=== PATIENT | female | born 1960 | race Caucasian/White ===

== ENCOUNTER 2023-09-11 14:06 | Outpatient (CLI) | payer OTHER, SELFPAY ==
--- NOTE | 2023-09-11 14:40 | CRLHL7_ITS ---
For Patients: As a result of the Century Cures Act, medical imaging exams and procedure reports are released immediately into your electronic medical record. You may view this report before your referring provider. If you have questions, please contact your health care provider. BILATERAL SCREENING MAMMOGRAM WITH COMPUTER-AIDED DETECTION TECHNIQUE: CC and MLO views were obtained. These mammographic images have been obtained using full-field digital technique. These mammographic images were interpreted with the benefit of computer-aided detection. COMPARISON FILM: No prior available. FINDINGS: There are scattered areas of fibroglandular density IMPRESSION: There is no radiographic evidence for malignancy. ASSESSMENT: BI-RADS Category 1: Negative RECOMMENDATION: Routine screening mammogram in 1 year. A lay language report of this examination will be provided to the patient. Cirilo Truong M.D. Diagnostic Radiologist [email or web address] TARUN/Dictated by: Cirilo Truong MD @ 09/25/2023 11:47:00 AM (Electronically Signed)
== END 2023-09-11 14:07 | disposition home or self-care (01) ==
LOC: MAMMO 14:10
PROVIDERS: PCP Family Medicine; Visit Provider Family Medicine
DX: Z12.31 Encounter for screening mammogram for malignant neoplasm of breast (principal)
CPT/HCPCS: 77067

== ENCOUNTER 2024-09-14 13:39 | Outpatient (CLI) | payer OTHER, SELFPAY ==
--- OUTSIDE RECORDS SUMMARY | 2024-09-14 13:50 | XMS_ITS | Continuity of Care Document ---
Author Organization [facility] Address [address] [address] [place] [address] Phone Care Team Providers Care Cdl Dedicated Truck Driver Name Role Phone Ezra Phipps CRNA Unavailable Unavailable Allergies, Adverse Reactions, Alerts Substance Reaction Status Criticality No Known Allergies Active No Inform ation WARNIN allergy(ies) could not be collected because the type is not supported. Please contact the source practice for further details. Medications Medication Instructions Dosage Effective Dates (start - stop) Status Comments vitamin E (dl, acetate) 180 mg (400 unit) capsule - Active Vitamin D3 125 mcg (5,000 unit) tablet take 1 by Oral route once 1 - Active lisinopril 20 mg-hydrochlorothiaz dano 12.5 mg tablet take 1 tablet by oral route every day 1.00 tablet - Active CoQ-10 100 mg capsule take 2 tablet by oral route every day 2 tablet - Active loratadine 10 mg capsule take 1 tablet by oral route every day for 1 day 1 tablet - Active atorvastatin 40 mg tablet take 1 tablet by oral route every day 40 MG - Active multivitamin tablet take 1 Tablet by Oral route every day 1 Tablet - Active Super B Complex + C 150 mg tablet take 1 tablet by oral route every day - Active aspirin 81 mg tablet,delayed release take 1 tablet (81MG) by oral route every day 81 MG - Active Euthyrox 50 mcg tablet take 1 tablet by oral route every day 50 MCG - No Longer Active zinc 50 mg tablet take 1 tablet by oral route every day No Longer Active Benadryl 25 mg capsule take 1 capsule by oral route every day as needed 25 MG No Longer Active melatonin 5 mg capsule take 1 tablet by oral route every day as needed 1 tablet No Longer Active lisinopril 10 mg tablet take 1 tablet by oral route every day 10 MG No Longer Active fluoxetine 10 mg capsule take 1 capsule (10MG) by ORAL route every day 10 MG No Longer Active Zantac 150 mg tablet take 1 tablet (150MG) by oral route 2 times every day - No Longer Active Procedures Procedure Date Colonoscopy Flex; W/remov Les- Level Iv-surg Path Gross/micro 23 Colonoscopy Flex; W/remov Les- 19 Colonoscopy Flex; W/bx 1/mx Level Iv-surg Path Gross/micro 19 Adenoma(s), Other Neoplasm Detected Duri ng Screen Colonoscopy Flex; W/remov Les- 18 Level Iv-surg Path Gross/micro 18 Colonoscopy Flex; W/remov Les- 13 Level Iv-surg Path Gross/micro 13 Advance Directives Directive Yes / No Effective Date File Name No Information Encounters Encounter Description Practice Location Reason(s) For Visit Diagnoses Date Provider Providers Copied on Encounter [facility] [address] [address], [place], [id number], [place] tel:[phone] Eliza [facility] No Information 3 Desire Munguia. [address] [facility], [place], [place], [id number], [place]. tel:[phone] Referring Provider: Peter Kang MD S, [address] [facility] [address], [place], [address] . tel:[phone] [facility] [place], [address] [address], [place], [id number], [place] tel:[phone] [facility] GI Symptoms or Concerns (chief complaint) Colorectal polypsDivertic ulosis of colon without diverticulitis Encounter for screening for malignant neoplasm of colonPersonal history of colonic polypsDvrtclos of lg int w/o perforation or abscess w/o bleedingPolyp of colon 3 Pearl Green. [address] [facility], [facility] [address], [place], [id number], [place]. tel:[phone] Referring Provider: Referral Self, USE FOR SELF REFERRALS. [facility] [place], [address] [address], [place], [id number], [place] tel:[phone] [facility] Colorectal polypsDivertic ulosis of colon without diverticulitis Hx of adenomatous colonic polypsEncounte r for screening for malignant neoplasm of colonBenign neoplasm of transverse colonDvrtclos of lg int w/o perforation or abscess w/o bleedingBenign neoplasm of transverse colonPersonal history of colonic polyps 9 No Information Referring Provider: Kelsi Rodriguez MD, [address] [facility] [address], [place], [address] . tel:[phone] [facility] [place], [address] [address], [place], [id number], [place] tel:[phone] [facility] Diverticulosis large intestine w/o perforation or abscess w/o bleedingPolyp of colon, unspecified part of colon, unspecified typeEncounter for screening for malignant neoplasm of colonBenign neoplasm of cecumBenign neoplasm of ascending colon 8 Jennifer Dolan. [address] [facility], [address], [id number], [place]. tel:[phone] Referring Provider: Referral Self, USE FOR SELF REFERRALS. [facility] [place], [address] [address], [place], [id number], [place] tel:[phone] Eliza [facility] Polyp-intes/re ct/stom-unc BehColon Cancer ScreeningBenig n Neoplasm ColonDiverticu losis Of ColonColon Cancer ScreeningDiver ticulosis Of ColonBenign Neoplasm Colon 3 Mayuri Gutiérrez. [address] [facility], [facility] [address], [place], [place], [id number], [place]. tel:[phone] Family History Family Member Type Diagnosis Age At Onset Mother Problem (finding) Thyroid disorder Mother Problem (finding) Hepatitis C Father Problem (finding) Brother Problem (finding) Cardiovascular disease Payers Payer name Insurance type Covered democrat ID Authoriza tion(s) No Information Social History Type Description Quantity Date Captured Comments Sex Female Smoking Status No Information Chief Complaint And Reason For Visit No Information Reason For Referral Reason For Referral No Information History Of Present Illness Encounter Date Complaint History Of Prese nt Illness GI Symptoms or Concerns Functional Status Date Functional Assessmen t No Information Instructions Date Instruction Additional Infor mation Diverticulosis/Diverticulitis Re lated to Colorectal polyps Colon Polyps Related to Color ectal polyps Colon Cancer Prevention Related to Colorectal polyps High Fiber Diet Related to Color ectal polyps Colon Cancer Prevention Related to Colorectal polyps Colon Polyps Related to Color ectal polyps Diverticulosis/Diverticulitis Re lated to Colorectal polyps Colon Cancer Prevention Related to Colorectal polyps Colon Polyps Related to Color ectal polyps Diverticulosis/Diverticulitis Re lated to Colorectal polyps Colon Cancer Prevention Related to Diverticulosis large intestine w/o perforation or abscess w/o bleeding High Fiber Diet Related to Diver ticulosis large intestine w/o perforation or abscess w/o bleeding Diverticulosis/Diverticulitis Re lated to Diverticulosis large intestine w/o perforation or abscess w/o bleeding Colon Polyps Related to Diver ticulosis large intestine w/o perforation or abscess w/o bleeding Assessments Type Assessment Date No Information Patient Care Teams Name Effective Dates (start - stop) Status Members No Information
--- OUTSIDE RECORDS SUMMARY | 2024-09-14 13:50 | XMS_ITS | Clinical Summary ---
Author Organization [facility] Address [address], [place] [address] Care Team Providers Care Resolution Manager Name Role Phone Unassigned, Provider Primary Care Provider Unava ilable Source Comments You are receiving this document as you are listed as the primary care provider,follow-up provider, or the patient has been referred to you for consultation.This is in compliance with the Medicare andW[facility] Medical Centercaid EHR Incentive Program,which states Providers who transition their patient to another setting of careor provider of care or refers their patient to another provider of care shouldprovide summary care record for each transition of care or referral. [facility] Allergies No known active allergies Medications Medication Sig Dispensed Refills Start Date End Date Status simvastatin (ZOCOR) 20 MG tablet Take 20 mg by mouth daily at bedtime. Active LISINOPRIL OR Take 15 mg by mouth daily. Active Active Problems No known active problems Immunizations Name Administration Dates Next Due Tdap 01/26/2020 Social History Tobacco Use Types Packs/Day Years Used Date Smoking Tobacco: Never Smokeless Tobacco: Never Sex and Gender Information Value Date Recorded Sex Assigned at Not on file Gender Identity Not on file Sexual Orientation Not on file Last Filed Vital Signs Vital Sign Reading Time Taken Comments Blood Pressure 152/90 01/26/2020 3:11 PM [facility] Pulse 90 01/26/2020 3:11 PM [employer] [facility] Temperature 36.8 ??C (98.2 ??F) 01/26/2020 3:11 PM CS T Respiratory Rate 16 01/26/2020 3:11 PM [facility] Oxygen Saturation 100% 01/26/2020 3:11 PM [facility] Inhaled Oxygen Concentration - - Weight - - Height - - Body Mass Index - - Plan of Treatment Health Maintenance Due Date Last Done Comments Cervical Cancer Screening Due 1961 Colon Cancer Screening Plan Due 1961 Hep C Screening (Preventive Services) 1961 Mammogram 1961 HIV Screening (Preventive Services) 1977 Adult Preventive Visit 1979 Cholesterol 2006 Zoster/Shingles (1 of 2) 2011 COVID-19 Vaccine (1 - 2023-2 5 season) 2024 Influenza (#1) 2024 DTaP/Tdap/Td (2 - Tdap) 01/26/2030 01/26/2020 RSV (1 - 1-dose 75+ series) 2036 HepA Aged Out No longer eligi ble based on patient's age to complete this topic HepB Aged Out No longer eligi ble based on patient's age to complete this topic Hib Aged Out No longer eligi ble based on patient's age to complete this topic IPV (Polio) Aged Out No longer eligi ble based on patient's age to complete this topic Infant RSV Aged Out No longer eligi ble based on patient's age to complete this topic MCV4 Aged Out No longer eligi ble based on patient's age to complete this topic Pneumococcal Aged Out No longer eligi ble based on patient's age to complete this topic Care Teams Resolution Manager Relationship Specialty Start Date End Date Unassigned, Provider [address] [place] [id number] PCP - General 02/02/01
--- OUTSIDE RECORDS SUMMARY | 2024-09-14 13:51 | XMS_ITS | Referral Summary ---
Author Organization [facility] Address [address] [place] [address] Care Team Providers Care Senior Data Modeler Name Role Phone Priya Carlson MD Primary Care Provider Priya Carlson MD Unavailable Allergies No known active allergies Medications Medication Sig Dispensed Refills Start Date End Date Status loratadine (CLARITIN) 10 MG tablet Active hydrocortisone 2.5 % ointment 09/11/2021 Active aspirin 81 MG EC tablet Active atorvastatin (LIPITOR) 40 MG tabletIndications:Hype rlipidemia LDL goal <130 Take 1 tablet (40 mg) by mouth At Bedtime 90 tablet 3 10/23/2022 Active lisinopril-hydrochloro thiazide (ZESTORETIC) 20-12.5 MG tabletIndications:Leonard gn essential hypertension Take 1 tablet by mouth daily 90 tablet 1 10/23/2022 Active traZODone (DESYREL) 50 MG tabletIndications:Slee p disturbance Take 1 tablet (50 mg) by mouth At Bedtime 90 tablet 1 10/23/2022 Active Active Problems Problem Noted Date Diagnosed Date Bilateral low back pain with bilateral sciatica 06/19/2022 Hip pain, right 06/19/2022 Hip pain, left 06/19/2022 Immunizations Name Administration Dates Next Due COVID-19 Bivalent 12+ (Pfizer) 09/16/2022 COVID-19 MONOVALENT 12+ (Pfizer) 04/16/2022 COVID-19 Monovalent 18+ (Moderna) 03/17/2021, Flu 65+ (Fluad) 08/24/2021 Flu, Unspecified 08/16/2022 HepA, Unspecified 04/16/2022,08/24/2012,03/14/20 12 Hepatitis B, Adult 04/16/2022 Influenza Vaccine >6 months,quad, PF 08/03/2020, 09/16/2019,07/24/2018 Influenza Vaccine, 6+MO IM ( QUADRIVALENT W/PRESERVATIVES) 08/24/2021 TDAP (Adacel,Boostrix) 01/26/2020 Zoster recombinant adjuvanted (SHINGRIX) 020,08/03/2020 Social History Tobacco Use Types Packs/Day Years Used Date Smoking Tobacco: Former Cigarettes Q uit: 1992 Smokeless Tobacco: Never Alcohol Use Standard Drinks/Week Comments Yes 0 (1 standard drink = 0.6 oz pur e alcohol) Social Connection and Isolation Panel [NHANES] A nswer Date Recorded In a typical week, how many times do you talk on the phone with family, friends, or neighbors? Patient declined 10/19/2022 How often do you get togethe r with friends or relatives? Patient declined 10/19/2022 How often do you attend mosque or christian serv ices? Patient declined 10/19/2022 Do you belong to any clubs o r organizations such as mosque groups, unions, fraternal or athletic groups, or school groups? Yes 10/19/2022 Attends Club or Organization Meetings Not on rachel e 10/19/2022 Are you , , di vorced, , never , or living with a partner? 10/19/2022 AUDIT-C Answer Date Recorded Q1: How often do you have a drink containing alc ohol? Patient declined 10/19/2022 Q2: How many drinks containi ng alcohol do you have on a typical day when you are drinking? Patient declined 10/19/2022 Q3: How often do you have si x or more drinks on one occasion? Patient declined 10/19/2022 Overall Financial Resource Strain (CARDIA) Answe r Date Recorded How hard is it for you to pa y for the very basics like food, housing, medical care, and heating? Not hard at all 10/19/2022 PHQ-2 Answer Date Recorded PHQ-2 Score 0 10/23/2022 Citizen Of [place] [facility] - Occupational Stress Questionnaire Answer Date Recorded Do you feel stress - tense, restless, nervous, or anxious, or unable to sleep at night because your mind is troubled all the time - these days? To some extent 10/19/2022 Exercise Vital Sign Answer Date Recorde d On average, how many days pe r week do you engage in moderate to strenuous exercise (like a brisk walk)? 4 days 10/19/2022 On average, how many minutes do you engage in exercise at this level? 60 min 10/19/2022 Hunger Vital Sign Answer Date Recorded Within the past 12 months, y ou worried that your food would run out before you got the money to buy more. Never true 10/19/20 22 Within the past 12 months, t he food you bought just didn't last and you didn't have money to get more. Never true 10/19/2022 PRAPARE - Transportation Answer Date Re corded In the past 12 months, has l ack of transportation kept you from medical appointments or from getting medications? No 10/02 In the past 12 months, has l ack of transportation kept you from meetings, work, or from getting things needed for daily living? No 10/19/2022 Housing Stability Vital Sign Answer [place] e Recorded In the last 12 months, was t here a time when you were not able to pay the mortgage or rent on time? No 10/19/2022 In the last 12 months, how many places have you lived? 1 10/19/2022 In the last 12 months, was t here a time when you did not have a steady place to sleep or slept in a intermediate (including now)? No 10/19/2022 Adolescent Education Answer Date Record ed Getting School Help Needed Not on file 08/31 Sex and Gender Information Value Date Recorded Sex Assigned at Female 02/13/2022 2:12 PM CDT Gender Identity Female 02/13/2022 2:12 PM CDT Sexual Orientation Straight 02/13/2022 2: 12 PM CDT Last Filed Vital Signs Vital Sign Reading Time Taken Comments Blood Pressure 128/84 11/19/2022 8:14 AM BOTTLING ROOM WORKER Pulse 82 10/23/2022 2:09 PM BOTTLING ROOM WORKER Temperature 36.7 ??C (98 ??F) 10/23/2022 2:09 PM BOTTLING ROOM WORKER Respiratory Rate 14 10/23/2022 2:09 PM BOTTLING ROOM WORKER Oxygen Saturation 99% 10/23/2022 2:09 PM BOTTLING ROOM WORKER Inhaled Oxygen Concentration - - Weight 70.8 kg (156 lb) 10/23/2022 2:09 PM BOTTLING ROOM WORKER Height 160 cm (5' 3) 10/23/2022 2:09 PM BOTTLING ROOM WORKER Body Mass Index 27.63 10/23/2022 2:09 PM BOTTLING ROOM WORKER Plan of Treatment Not on file Procedures Procedure Name Priority Date/Time Associated Diagnosis Comments HIV ANTIGEN ANTIBODY COMBO Routine 11/19/2022 8:00 AM BOTTLING ROOM WORKER Screening for HIV (human immunodeficiency virus) HEPATITIS C SCREEN REFLEX TO HCV RNA QUANT AND GENOTYPE Routine 11/19/2022 8:00 AM BOTTLING ROOM WORKER Need for hepatitis C screening test LIPID REFLEX TO DIRECT LDL PANEL Routine 11/19/2022 8:00 AM BOTTLING ROOM WORKER Hyperlipidemia LDL goal <130 COMPREHENSIVE METABOLIC PANEL Routine 11/19/2022 8:00 AM BOTTLING ROOM WORKER Benign essential hypertension MAMMOGRAM - HIM SCAN 08/28/2021 12:00 AM CDT ABSTRACT PAP ([facility] EXTERNAL RESULT) Routine 08/03/2020 1:44 PM CDT ABSTRACT HPV ([facility] EXTERNAL RESULT) Routine 08/03/2020 1:44 PM CDT COLONOSCOPY - HIM SCAN 11/20/2019 12:00 AM BOTTLING ROOM WORKER from Last 3 Months or Most Recently Relevant to Health Maintenance Results * HIV Antigen Antibody Combo (11/19/2022 8:00 AM BOTTLING ROOM WORKER) HIV Antigen Antibody Combo Nonreactive Nonreactive 11/19/2022 3:56 PM BOTTLING ROOM WORKER SPECIALTY CORE/PROT/EN DO Comment:HIV-1 p24 Ag & HIV-1 /HIV-2 Ab Not Detected Blood BLOOD SPECIMEN / Unknown Venipuncture / Unknown 11/19/2022 8:00 AM BOTTLING ROOM WORKER 11/19/2022 8:00 AM BOTTLING ROOM WORKER Priya Carlson MD LAB - BLOOD ORDERABL ES Performing Organization Address [facility]/ZIP Co de Phone Number [facility] SPECIALTY CORE/PROT/ENDO Specialty Core/Prot/Endo [address] [facility], [address] [phone] * Hepatitis C Screen Reflex to HCV RNA Quant and Genotype (11/19/2022 8:00 AM BOTTLING ROOM WORKER) Hepatitis C Antibody Nonreactive Nonreactive 11/19/2022 3:56 PM BOTTLING ROOM WORKER [facility] C[facility]/PROT/EN DO Blood BLOOD SPECIMEN / Unknown Venipuncture / Unknown 11/19/2022 8:00 AM BOTTLING ROOM WORKER 11/19/2022 8:00 AM BOTTLING ROOM WORKER Narrative [facility] CORE/PROT/ENDO - 11/19/2022 3:56 PM BOTTLING ROOM WORKER Assay performance characteristics have not been established for newborns, infants, and children. Priya Carlson MD LAB - BLOOD ORDERABL ES Performing Organization Address [facility] de Phone Number [facility] SPECIAL[facility] CORE/PROT/ENDO Specialty Core/Prot/Endo [address] [facility], [address] [phone] * (ABNORMAL) Lipid panel reflex to direct LDL Non-fasting (11/19/2022 8:00 AM BOTTLING ROOM WORKER) Cholesterol 247(H) <200 mg/dL 11/19/2022 7:16 PM BOTTLING ROOM WORKER [facility] Triglycerides 89 <150 mg/dL 11/19/2022 7:16 PM BOTTLING ROOM WORKER [facility] Direct Measure HDL 56 >=50 mg/dL 11/19/2022 7:16 PM BOTTLING ROOM WORKER [facility] LDL Cholesterol Calculated 173(H) <=100 mg/dL 11/19/2022 7:16 PM BOTTLING ROOM WORKER [facility] Non HDL Cholesterol 191(H) <130 mg/dL 11/19/2022 7:16 PM BOTTLING ROOM WORKER [facility] Blood BLOOD SPECIMEN / Unknown Venipuncture / Unknown 11/19/2022 8:00 AM BOTTLING ROOM WORKER 11/19/2022 8:00 AM BOTTLING ROOM WORKER Narrative [facility] - 11/19/2022 7:16 PM BOTTLING ROOM WORKER Cholesterol Desirable: ??<200 mg/dL Triglycerides Normal: ??Less than 150 mg/dL Borderline High: ??150-199 mg/dL High: ??200-499 mg/dL Very High: ??Greater than or equal to 500 mg/dL Direct Measure HDL Female: ??Greater than or equal to 50 mg/dL Male: ??Greater than or equal to 40 mg/dL LDL Cholesterol Desirable: ??<100mg/dL Above Desirable: ??100-129 mg/dL Borderline High: ??130-159 mg/dL High: ??160-189 mg/dL Very High: ??>= 190 mg/dL Non HDL Cholesterol Desirable: ??130 mg/dL Above Desirable: ??130-159 mg/dL Borderline High: ??160-189 mg/dL High: ??190-219 mg/dL Very High: ??Greater than or equal to 220 mg/dL Priya Carlson MD LAB - BLOOD ORDERABL ES [facility] Core Lab [address] [facility], [address] [place] [address], [facility] [phone] * (ABNORMAL) Comprehensive metabolic panel (BMP + Alb, Alk Phos, ALT, AST, Total. Bili, TP) (11/19/2022 8:00 AM BOTTLING ROOM WORKER) Sodium 138 136 - 145 mmol/L 11/19/2022 7:16 PM BOTTLING ROOM WORKER [facility] Potassium 4.3 3.4 - 5.3 mmol/L 11/19/2022 7:16 PM BOTTLING ROOM WORKER [facility] Chloride 101 98 - 107 mmol/L 11/19/2022 7:16 PM BOTTLING ROOM WORKER [facility] Carbon Dioxide (CO2) 22 22 - 29 mmol/L 11/19/2022 7:16 PM BOTTLING ROOM WORKER [facility] Anion Gap 15 7 - 15 mmol/L 11/19/2022 7:16 PM BOTTLING ROOM WORKER [facility] Urea Nitrogen 17.3 8.0 - 23.0 mg/dL 11/19/2022 7:16 PM BOTTLING ROOM WORKER [facility] Creatinine 0.68 0.51 - 0.95 mg/dL 11/19/2022 7:16 PM BOTTLING ROOM WORKER [facility] Calcium 9.5 8.8 - 10.2 mg/dL 11/19/2022 7:16 PM BOTTLING ROOM WORKER [facility] Glucose 102(H) 70 - 99 mg/dL 11/19/2022 7:16 PM BOTTLING ROOM WORKER [facility] Alkaline Phosphatase 95 35 - 104 U/L 11/19/2022 7:16 PM BOTTLING ROOM WORKER [facility] AST 26 10 - 35 U/L 11/19/2022 7:16 PM BOTTLING ROOM WORKER [facility] ALT 22 10 - 35 U/L 11/19/2022 7:16 PM BOTTLING ROOM WORKER [facility] Protein Total 7.4 6.4 - 8.3 g/dL 11/19/2022 7:16 PM BOTTLING ROOM WORKER [facility] Albumin 4.6 3.5 - 5.2 g/dL 11/19/2022 7:16 PM BOTTLING ROOM WORKER [facility] Bilirubin Total 0.2 <=1.2 mg/dL 11/19/2022 7:16 PM BOTTLING ROOM WORKER [facility] GFR Estimate >90 >60 mL/min/1.7 3m2 11/19/2022 7:16 PM BOTTLING ROOM WORKER [facility] Comment:Effective November 022020 eGFRcr in adults is calculated using the 2020 CKD-EPI creatinine equation which includes age and gender (Mack et al., NEJM, DOI: 10.1056/ONGXxo6172078) Blood BLOOD SPECIMEN / Unknown Venipuncture / Unknown 11/19/2022 8:00 AM BOTTLING ROOM WORKER 11/19/2022 8:00 AM BOTTLING ROOM WORKER Priya Carlson MD LAB - BLOOD ORDERABL ES [facility] [place] [facility] [address] [facility], [address] [place] [address], [facility] [phone] * MAMMOGRAM - HIM SCAN (08/28/2021 12:00 AM CDT) Anatomical Region Laterality Modality Other 08/28/2021 Provider Outside IMG MAMMOGRAPHY KEN SCOTT * Abstract HPV (HIM External Result) (08/03/2020 1:44 PM CDT) HPV Abstract See Scanned Document [facility] 08/03/2020 1:44 PM CDT Narrative [facility] - 08/03/2020 1:44 PM CDT PAP SMEAR [facility] Lab Result Provider Outside LAB - HIM EXTERNAL R ESULT Performing Organization Address [facility] Co de Phone Number [facility] [address] * Abstract PAP (HIM External Result) (08/03/2020 1:44 PM CDT) PAP-ABSTRACT See Scanned Document [facility] 08/03/2020 1:44 PM CDT Narrative [facility] - 08/03/2020 1:44 PM CDT PAP SMEAR [facility] Lab Result Provider Outside LAB - HIM EXTERNAL R ESULT Performing Organization Address [facility] de Phone Number [facility] [address] * COLONOSCOPY - HIM SCAN (11/20/2019 12:00 AM BOTTLING ROOM WORKER) 11/20/2019 Provider Outside PROCEDURES from Last 3 Months or Most Recently Relevant to Health Maintenance Care Teams Senior Data Modeler Relationship Specialty [place] [address] [place] [address] PCP - General 10/19/22 [place] [address] [place] [address] Assigned PCP 11/03/22
--- OUTSIDE RECORDS SUMMARY | 2024-09-14 13:51 | XMS_ITS | Continuity of Care Document ---
Author Organization [facility] Address [address] [place] [address] Insurance Providers Payer Plan Claims Address Claims Phone Policy Number Group Number Relation Employer Guarantor Name Guarantor Guarantor Address Guarantor Phone [employer] [address] [address], [place] [id number] Self Jacquelyn Berg [address] [place] [id number] [facility] [address], [place] [address] tel:[phone] Self Jacquelyn Berg [address] [place] [id number] Problems Unknown Problems Results No Results Allergies, adverse reactions, alerts No known allergies and adverse reactions Medications No administered medications reported Vital Signs Date Vital Result Comment 05/13/2024 Body Height 1.8161184244693 m Body Weight 63.635056428517 kg Body Mass Index 24.03 kg/m2 Social History No smoking Hx information available
--- OUTSIDE RECORDS SUMMARY | 2024-09-14 13:51 | XMS_ITS | Encounter Summary ---
Author Organization [facility] Address [address] [place] [address] Care Team Providers Care Capacitor Repairer Name Role Phone Lesia Wheat Primary Care Provider [phone] Yoel Adkins DO Unavailable [phone] Ana Connolly PA-C Unavailable [phone] Priya Carlson MD Primary Care Provider [phone] Priya Carlson MD Unavailable Encounter Details Date Type Department Care Team (Late st Contact Info) Description 06/25/2022 MyC Medical Advice Initial Department Kathy Barrera Social History Tobacco Use Types Packs/Day Years Used Date Smoking Tobacco: Former Cigarettes Q uit: 1992 Smokeless Tobacco: Never Alcohol Use Standard Drinks/Week Comments Yes 0 (1 standard drink = 0.6 oz pur e alcohol) PHQ-2 Answer Date Recorded PHQ-2 Score 5 02/16/2022 Sex and Gender Information Value Date Recorded Sex Assigned at Female 02/13/2022 2:12 PM CDT Gender Identity Female 02/13/2022 2:12 PM CDT Sexual Orientation Straight 02/13/2022 2: 12 PM CDT COVID-19 Exposure Response Date Recorded In the last 10 days, have yo u been in contact with someone who was confirmed or suspected to have Coronavirus/COVID-19? No / Unsure 06/28/2022 12:58 PM CDT documented as of this encounter Plan of Treatment Not on file documented as of this encounter Visit Diagnoses Not on filedocumented in this encounter Additional Health Concerns Assessment Noted Time PHQ-9 Depression Total Score: 10 022 9:40 AM CDT documented as of this encounter Care Teams Capacitor Repairer Relationship Specialty Start Date End Date Lesia Wheat [facility] [address] [place] [address] PCP - General Nurse Practitioner 08/21/17 10/18/22 [place] [address] [place] [address] PCP - General 10/19/22 [place] [address] [place] [address] Assigned PCP 01/28/22 11/02/22 Ana Connolly PA-C [facility] [address] [address] Assigned Neuroscience Provider 06/09/22 11/29/23 [place] [address] [place] [address] Assigned PCP 11/03/22 documented as of this encounter
--- OUTSIDE RECORDS SUMMARY | 2024-09-14 13:51 | XMS_ITS | Encounter Summary ---
Author Organization [facility] Address [address] [place] [address]. [place] [address] Care Team Providers Care Surgery Scheduling Coordinator Name Role Phone Lesia Wheat Primary Care Provider [phone] Yoel Adkins DO Unavailable [phone] Ana Connolly PA-C Unavailable [phone] Priya Carlson MD Primary Care Provider Priya Carlson MD Unavailable Encounter Details Date Type Department Care Team (Late st Contact Info) Description 05/25/2022 MyC Medical Advice [facility] [address] [place] [id number] [place] [address] [place] [address] Social History Tobacco Use Types Packs/Day Years [...] Orientation Straight 02/13/2022 2: 12 PM CDT documented as of this encounter Plan of Treatment Not on file documented as of this encounter Visit Diagnoses Not on filedocumented in this encounter Additional Health Concerns Assessment Noted Time PHQ-9 Depression Total Score: 10 022 9:40 AM CDT documented as of this encounter Care Teams Surgery Scheduling Coordinator Relationship Specialty Start Date End Date Lesia Wheat [facility] [address] [place] [address] PCP - General Nurse Practitioner 08/21/17 10/18/22 [place] [address] [place] [address] PCP - General 10/19/22 [place] [address] [place] [address] Assigned PCP 01/28/22 11/02/22 Ana Connolly PA-C [facility] [address] [place] [address] Assigned Neuroscience Provider 06/09/22 11/29/23 [place] [address] [place] [address] Assigned PCP 11/03/22 documented as of this encounter
--- OUTSIDE RECORDS SUMMARY | 2024-09-14 13:51 | XMS_ITS | Clinical Summary ---
Author Organization [facility] Address [address] [place] [address] Care Team Providers Care Remittance Clerk Name Role Phone Priya Carlson MD Primary Care Provider [phone] Priya Carlson MD Unavailable Allergies No known [...] (Adacel,Boostrix) 01/26/2020 Zoster recombinant adjuvanted (SHINGRIX) 020,08/03/2020 Family History Medical History Relation Comments Hyperlipidemia Father Hypertension Father Hyperlipidemia Mother Hypertension Mother Relation Status Comments Father Mother Social History Tobacco Use Types Packs/Day Years [...] declined 10/19/2022 How often do you attend moravian or taoist serv ices? Patient declined 10/19/2022 Do you belong to any clubs o r organizations such as moravian groups, unions, fraternal or athletic groups, or [...] Answer Date Recorded PHQ-2 Score 0 10/23/2022 [facility] Occupational Stress Questionnaire Answer Date Recorded [...] place to sleep or slept in a long-term (including now)? No 10/19/2022 Adolescent Education Answer [...] Comments Blood Pressure 128/84 11/19/2022 8:14 AM REAL ESTATE SALESPERSON Pulse 82 10/23/2022 2:09 PM REAL ESTATE SALESPERSON Temperature 36.7 ??C (98 ??F) 10/23/2022 2:09 PM REAL ESTATE SALESPERSON Respiratory Rate 14 10/23/2022 2:09 PM REAL ESTATE SALESPERSON Oxygen Saturation 99% 10/23/2022 2:09 PM REAL ESTATE SALESPERSON Inhaled Oxygen Concentration - - Weight 70.8 kg (156 lb) 10/23/2022 2:09 PM REAL ESTATE SALESPERSON Height 160 cm (5' 3) 10/23/2022 2:09 PM REAL ESTATE SALESPERSON Body Mass Index 27.63 10/23/2022 2:09 PM REAL ESTATE SALESPERSON Plan of Treatment Health Maintenance Due Date Last Done Comments CT COLONOGRAPHY 1961 FIT 1961 FLEX SIG 1961 sDNA (Cologuard) 1961 LUNG CANCER SCREENING 2011 ANNUAL REVIEW OF HM ORDERS 10/23/2023 10/23/2022 YEARLY PREVENTIVE VISIT 10/23/2023 10/23/20, 09/12/2022, 08/29/2021, Additional history exists BMP 11/19/2023 11/19/2022 LIPID 11/19/2023 11/19/2022 PHQ-2 (once per calendar year) 2023 10/23/2022, 02/16/2022, 02/16/2022, Additional history exists COVID-19 Vaccine ( season) 2024 09/16/2022, 04/16/2022, 03/17/2021, Additional history exists INFLUENZA VACCINE (#1) 2024 , 08/24/2021, 08/24/2021, Additional history exists MAMMO SCREENING 08/29/2024 08/29/2022, 08/28/2021 HPV TEST 08/03/2025 08/03/2020 PAP 08/03/2025 08/03/2020, 08/03/2020 GLUCOSE 11/19/2025 11/19/2022 ADVANCE CARE PLANNING 10/24/2027 10/24/2022 DTAP/TDAP/TD IMMUNIZATION (2 - Td or Tdap) 01/26/2030 01/26/2020 COLONOSCOPY 12/05/2032 12/05/2022, 11/20/2019 COLORECTAL CANCER SCREENING 12/05/2032 RSV VACCINE (1 - 1-dose 75+ series) 2036 ZOSTER IMMUNIZATION Completed 10/18/2020, 0 HEPATITIS C SCREENING Completed 11/19/2022 HIV SCREENING Completed 11/19/2022 HPV IMMUNIZATION Aged Out No longer e ligible based on patient's age to complete this topic MENINGITIS IMMUNIZATION Aged Out No l onger eligible based on patient's age to complete this topic Pneumococcal Vaccine: Pediatrics (0 to 5 Years) and At-Risk Patients (6 to 64 Years) Aged Out No longer eligible based on patient's age to complete this topic RSV MONOCLONAL ANTIBODY Aged Out No l onger eligible based on patient's age to complete this topic Procedures Procedure Name Priority Date/Time Associated Diagnosis Comments HIV ANTIGEN ANTIBODY COMBO Routine 11/19/2022 8:00 AM REAL ESTATE SALESPERSON Screening for HIV (human immunodeficiency virus) HEPATITIS C SCREEN REFLEX TO HCV RNA QUANT AND GENOTYPE Routine 11/19/2022 8:00 AM REAL ESTATE SALESPERSON Need for hepatitis C screening test LIPID REFLEX TO DIRECT LDL PANEL Routine 11/19/2022 8:00 AM REAL ESTATE SALESPERSON Hyperlipidemia LDL goal <130 COMPREHENSIVE METABOLIC PANEL Routine 11/19/2022 8:00 AM REAL ESTATE SALESPERSON Benign essential hypertension MAMMOGRAM - HIM SCAN 08/28/2021 12:00 AM CDT ABSTRACT PAP ([facility] EXTERNAL RESULT) Routine 08/03/2020 1:44 PM CDT ABSTRACT HPV ([facility] EXTERNAL RESULT) Routine 08/03/2020 1:44 PM CDT COLONOSCOPY - HIM SCAN 11/20/2019 12:00 AM REAL ESTATE SALESPERSON from Last 3 Months or Most Recently Relevant to Health Maintenance Results * HIV Antigen Antibody Combo (11/19/2022 8:00 AM REAL ESTATE SALESPERSON) HIV Antigen Antibody Combo Nonreactive Nonreactive 11/19/2022 3:56 PM REAL ESTATE SALESPERSON [facility] DO Comment:HIV-1 p24 Ag & HIV-1 /HIV-2 Ab Not Detected Blood BLOOD SPECIMEN / Unknown Venipuncture / Unknown 11/19/2022 8:00 AM REAL ESTATE SALESPERSON 11/19/2022 8:00 AM REAL ESTATE SALESPERSON Priya Carlson MD LAB - BLOOD ORDERABL ES [facility] [address] [facility], [address] [phone] * Hepatitis C Screen Reflex to HCV RNA Quant and Genotype (11/19/2022 8:00 AM REAL ESTATE SALESPERSON) Hepatitis C Antibody Nonreactive Nonreactive 11/19/2022 3:56 PM REAL ESTATE SALESPERSON [facility] Blood BLOOD SPECIMEN / Unknown Venipuncture / Unknown 11/19/2022 8:00 AM REAL ESTATE SALESPERSON 11/19/2022 8:00 AM REAL ESTATE SALESPERSON Narrative [facility] - 11/19/2022 3:56 PM REAL ESTATE SALESPERSON Assay performance characteristics have not been established for newborns, infants, and children. Priya Carlson MD LAB - BLOOD ORDERABL ES [facility] Specialty Core/Prot/Endo [address] [facility], [address] [phone] * (ABNORMAL) Lipid panel reflex to direct LDL Non-fasting (11/19/2022 8:00 AM REAL ESTATE SALESPERSON) Cholesterol 247(H) <200 mg/dL 11/19/2022 7:16 PM REAL ESTATE SALESPERSON [facility] Triglycerides 89 <150 mg/dL 11/19/2022 7:16 PM REAL ESTATE SALESPERSON [facility] Direct Measure HDL 56 >=50 mg/dL 11/19/2022 7:16 PM REAL ESTATE SALESPERSON [facility] LDL Cholesterol Calculated 173(H) <=100 mg/dL 11/19/2022 7:16 PM REAL ESTATE SALESPERSON [facility] Non HDL Cholesterol 191(H) <130 mg/dL 11/19/2022 7:16 PM REAL ESTATE SALESPERSON [facility] Blood BLOOD SPECIMEN / Unknown Venipuncture / Unknown 11/19/2022 8:00 AM REAL ESTATE SALESPERSON 11/19/2022 8:00 AM REAL ESTATE SALESPERSON Narrative [facility] - 11/19/2022 7:16 PM REAL ESTATE SALESPERSON Cholesterol Desirable: ??<200 mg/dL Triglycerides Normal: ??Less [...] LAB - BLOOD ORDERABL ES [facility] Core Lab [address] [facility], [address] [place] [phone], [facility] [phone] * (ABNORMAL) Comprehensive metabolic panel (BMP + Alb, Alk Phos, ALT, AST, Total. Bili, TP) (11/19/2022 8:00 AM REAL ESTATE SALESPERSON) Sodium 138 136 - 145 mmol/L 11/19/2022 7:16 PM REAL ESTATE SALESPERSON [facility] Potassium 4.3 3.4 - 5.3 mmol/L 11/19/2022 7:16 PM REAL ESTATE SALESPERSON [facility] Chloride 101 98 - 107 mmol/L 11/19/2022 7:16 PM REAL ESTATE SALESPERSON [facility] Carbon Dioxide (CO2) 22 22 - 29 mmol/L 11/19/2022 7:16 PM REAL ESTATE SALESPERSON [facility] Anion Gap 15 7 - 15 mmol/L 11/19/2022 7:16 PM REAL ESTATE SALESPERSON [facility] Urea Nitrogen 17.3 8.0 - 23.0 mg/dL 11/19/2022 7:16 PM REAL ESTATE SALESPERSON [facility] Creatinine 0.68 0.51 - 0.95 mg/dL 11/19/2022 7:16 PM REAL ESTATE SALESPERSON [facility] Calcium 9.5 8.8 - 10.2 mg/dL 11/19/2022 7:16 PM REAL ESTATE SALESPERSON [facility] Glucose 102(H) 70 - 99 mg/dL 11/19/2022 7:16 PM REAL ESTATE SALESPERSON [facility] Alkaline Phosphatase 95 35 - 104 U/L 11/19/2022 7:16 PM REAL ESTATE SALESPERSON [facility] AST 26 10 - 35 U/L 11/19/2022 7:16 PM REAL ESTATE SALESPERSON [facility] ALT 22 10 - 35 U/L 11/19/2022 7:16 PM REAL ESTATE SALESPERSON [facility] Protein Total 7.4 6.4 - 8.3 g/dL 11/19/2022 7:16 PM REAL ESTATE SALESPERSON [facility] Albumin 4.6 3.5 - 5.2 g/dL 11/19/2022 7:16 PM REAL ESTATE SALESPERSON [facility] Bilirubin Total 0.2 <=1.2 mg/dL 11/19/2022 7:16 PM REAL ESTATE SALESPERSON [facility] GFR Estimate >90 >60 mL/min/1.7 3m2 11/19/2022 7:16 PM REAL ESTATE SALESPERSON [facility] Comment:Effective November 022020 eGFRcr in adults is calculated using the 2020 CKD-EPI creatinine equation which includes age and gender (Mack et al., NEJM, DOI: 10.1056/VRATxb9244828) Blood BLOOD SPECIMEN / Unknown Venipuncture / Unknown 11/19/2022 8:00 AM REAL ESTATE SALESPERSON 11/19/2022 8:00 AM REAL ESTATE SALESPERSON Priya Carlson MD LAB - BLOOD ORDERABL ES [facility] [address] [facility], [address] [place] [address], [facility] [phone] * MAMMOGRAM - HIM SCAN (08/28/2021 12:00 AM CDT) Anatomical Region Laterality Modality Other 08/28/2021 Provider Outside IMG MAMMOGRAPHY KEN SCOTT * Abstract HPV ([facility] External Result) (08/03/2020 1:44 PM CDT) HPV Abstract See Scanned Document [facility] 08/03/2020 1:44 PM CDT Narrative [facility] - 08/03/2020 1:44 PM CDT PAP SMEAR [facility] Lab Result Provider Outside LAB - HIM EXTERNAL R ESULT Performing Organization Address [facility]/ZIP Co de Phone Number [facility] [address] * Abstract PAP ([facility] External Result) (08/03/2020 1:44 PM CDT) PAP-ABSTRACT See Scanned Document [facility] 08/03/2020 1:44 PM CDT Narrative [facility] - 08/03/2020 1:44 PM CDT PAP SMEAR [facility] Lab Result Provider Outside LAB - [facility] EXTERNAL R ESULT Performing Organization Address [facility]/ZIP Co de Phone Number [facility] [address] * COLONOSCOPY - HIM SCAN (11/20/2019 12:00 AM REAL ESTATE SALESPERSON) 11/20/2019 Provider Outside PROCEDURES from Last 3 Months or Most Recently Relevant to Health Maintenance Care Teams Remittance Clerk Relationship Specialty [place] [address] [place] [address] PCP - General 10/19/22 [place] [address] [place] [address] Assigned PCP 11/03/22
--- OUTSIDE RECORDS SUMMARY | 2024-09-14 13:51 | XMS_ITS | Encounter Summary ---
Author Organization [facility] Address [address] [place] [address]. [place] [address] Care Team Providers Care Tractor Technician Name Role Phone Lesia Wheat Primary Care Provider [phone] Yoel Adkins DO Unavailable [phone] Ana Connolly PA-C Unavailable Priya Carlson MD Primary Care Provider [phone] Priya Carlson MD Unavailable Reason for Visit * Reason Onset Date Comments Panel Management 03/29/2022 Pap, colonoscop y, and mammo Encounter Details Date Type Department Care Team (Late st Contact Info) Description 03/29/2022 MyC Medical Advice [address] [id number] Aline Doan, MEDICAL PHOTOGRAPHER Panel Management (Pap, colonoscopy, and ma... Social History Tobacco Use Types Packs/Day Years [...] PM CDT documented as of this encounter Miscellaneous Notes * Telephone Encounter - Aline Doan CMA - 05/17/2022 2:32 PM CDT Summary: Patient is due/failing the following: COLONOSCOPY, MAMMOGRAM and PAP Reviewed: [] CARE EVERYWHERE [] LAST OV NOTE INCLUDING ENDO [] FYI TAB [] MYCHART ACTIVE? [] LAST PANEL ENCOUNTER [] FUTURE APPTS [] IMMUNIZATIONS Action needed: Contacted [facility], ACUTE CARE PHYSICIAN, and [place] [facility], reports sent Type of outreach: will send all reports to sharif Doan/BOR[facility] documented in this encounter Plan of Treatment Not on file documented as of this encounter Visit Diagnoses Not on filedocumented in this encounter Additional Health Concerns Assessment Noted Time PHQ-9 Depression Total Score: 10 022 9:40 AM CDT documented as of this encounter Care Teams Tractor Technician Relationship Specialty Start Date End Date Lesia Wheat [facility] [address] [place] [address] PCP - General Nurse Practitioner 08/21/17 10/18/22 [place] [address] [place] [address] PCP - General 10/19/22 [place] [address] [place] [address] Assigned PCP 01/28/22 11/02/22 Ana Connolly PA-C [facility] [address] [place] [address] Assigned Neuroscience Provider 06/09/22 11/29/23 [place] [address] [place] [address] Assigned PCP 11/03/22 documented as of this encounter
--- OUTSIDE RECORDS SUMMARY | 2024-09-14 13:51 | XMS_ITS | Encounter Summary ---
Author Organization [facility] Address [address] [place] [address] Care Team Providers Care Insurance Claim Representative Name Role Phone Lesia Wheat Primary Care Provider [phone] Yoel Adkins DO Unavailable [phone] Ana Connolly PA-C Unavailable [phone] Priya Carlson MD Primary Care Provider Priya Carlson MD Unavailable Encounter Details Date Type Department Care Team (Late st Contact Info) Description 03/23/2022 MyC Medical Advice [facility] [address] [place] [id number] Aline Doan, ARCHEOLOGIST CLASSICAL Social History Tobacco Use Types Packs/Day Years [...] documented as of this encounter Care Teams Insurance Claim Representative Relationship Specialty Start Date End Date Lesia Wheat [facility] [address] [place] [address] PCP - General Nurse Practitioner 08/21/17 10/18/22 [place] [address] [place] [address] PCP - General 10/19/22 [place] [address] [place] [address] Assigned PCP 01/28/22 11/02/22 Ana Connolly PA-C [facility] [address] [place] [address] Assigned Neuroscience Provider 06/09/22 11/29/23 [place] [address] [place] [address] Assigned PCP 11/03/22 documented as of this encounter
--- NOTE | 2024-09-14 14:00 | CRLHL7_ITS ---
For Patients: As a result of the Century Cures Act, medical imaging exams and procedure reports are released immediately into your electronic medical record. You may view this report before your referring provider. If you have questions, please contact your health care provider. BILATERAL SCREENING MAMMOGRAM WITH COMPUTER-AIDED DETECTION AND TOMOSYNTHESIS TECHNIQUE: CC and MLO views were obtained. These mammographic images have been obtained using full-field digital technique. These mammographic images were interpreted with the benefit of computer-aided detection. Breast Tomosynthesis was used in this interpretation. COMPARISON FILM: 09/11/23. FINDINGS: There are scattered areas of fibroglandular density IMPRESSION: There is no radiographic evidence for malignancy. ASSESSMENT: BI-RADS Category 1: Negative RECOMMENDATION: Routine screening mammogram in 1 year. A lay language report of this examination will be provided to the patient. Cirilo Truong M.D. Diagnostic Radiologist [email or web address] TEE/jose angel Transcribed: 2:02 [employer] walter/Dictated by: Cirilo Truong MD @ 09/21/2024 10:01:00 AM (Electronically Signed)
== END 2024-09-14 13:40 | disposition home or self-care (01) ==
LOC: MAMMO 13:40
PROVIDERS: PCP Family Medicine; Visit Provider Family Medicine
DX: Z12.31 Encounter for screening mammogram for malignant neoplasm of breast (principal)
CPT/HCPCS: 77063; 77067

== ENCOUNTER 2025-09-28 13:08 | Outpatient (CLI) | payer OTHER, SELFPAY ==
--- NOTE | 2025-09-28 13:40 | CRLHL7_ITS ---
For Patients: As a result of the Century Cures Act, medical imaging exams and procedure reports are released immediately into your electronic medical record. You may view this report before your referring provider. If you have questions, please contact your health care provider. INDICATION: BILATERAL SCREENING MAMMOGRAM, ASYMPTOMATIC 64 Y/O FEMALE COMPARISON: 09/14/2024, 09/11/2023 TECHNIQUE: Digital mammogram in CC and MLO projections including computer-aided detection (CAD) and tomosynthesis. BREAST COMPOSITION: There are scattered areas of fibroglandular density. FINDINGS: No suspicious findings. ASSESSMENT: BI-RADS 1 Negative RECOMMENDATION: Annual screening mammogram. A lay language report of this examination will be provided to the patient. Dictated by: Cirilo Truong MD @ 09/29/2025 12:56:18 (Electronically Signed)
== END 2025-09-28 13:09 | disposition home or self-care (01) ==
LOC: MAMMO 13:09
PROVIDERS: PCP Family Medicine; Visit Provider Family Medicine
DX: Z12.31 Encounter for screening mammogram for malignant neoplasm of breast (principal)
CPT/HCPCS: 77063; 77067